=== PATIENT | female | born 1990 | race Caucasian/White ===

== ENCOUNTER → 2018-03-11 10:44 | Outpatient (CLI) | payer OTHER, SELFPAY ==
--- NOTE | 2018-03-11 | DI.US.S_ITS ---
PROCEDURE: US ABDOMEN LIMITED INDICATIONS: ABDOMINAL PAIN, MALS SYNDROME TECHNIQUE: Real-time focused scanning was performed of the abdomen, with image documentation. Doppler examination of the celiac artery in the erect and supine position with full inspiration and expiration. COMPARISON: None. FINDINGS: In the upright position, peak systolic velocity of the celiac axis measures 98 cm/second during inspiration and 178 cm/second in the expiration phase. In the supine position, peak systolic velocities within the celiac artery measure 264 cm/second (inspiration) and 391 cm/second (expiration). IMPRESSION: Increased peak systolic velocities within the celiac artery during expiration in both upright and supine position. Sonographic findings could potentially reflect median arcuate ligament syndrome and associated functional narrowing of the celiac artery. However, this requires close clinical correlation and as needed further evaluation with CTA abdomen could be performed. Dictated by: Binu Pantoja M.D. on 03/11/2018 at 12:12 Approved by: Binu Pantoja M.D. on 03/11/2018 at 12:16
== END ==
PROVIDERS: Visit Provider Family Medicine
DX: R10.9 Unspecified abdominal pain (principal); Q87.89 Other specified congenital malformation syndromes, not elsewhere classified
CPT/HCPCS: 76700; 76705

== ENCOUNTER → 2018-03-29 09:35 | Outpatient (CLI) | payer OTHER, SELFPAY ==
--- NOTE | 2018-03-29 | DI.CT.S_ITS ---
PROCEDURE: CT ANGIO ABDOMEN INDICATIONS: ABDOMINAL PAIN/MALS SYNDROME TECHNIQUE: After the administration of intravenous contrast, 2.5 mm sections acquired from the diaphragm to the iliac crests. 10 mm maximum intensity projection (MIP) coronal and sagittal reformats were then performed. For radiation dose reduction, the following was used: automated exposure control. COMPARISON: None. FINDINGS: Image quality: Excellent. Extravascular tissues: Lung bases are clear. Heart size is normal. Liver is normal in size and enhancement. Gallbladder is unremarkable. Biliary system is non dilated. Pancreas enhances normally. Spleen is normal in size and enhancement. No adrenal nodules. Kidneys are normal in size and enhancement, without hydronephrosis. Non-opacified bowel loops demonstrate normal wall thickness and caliber. No free fluid or air. No retroperitoneal or mesenteric adenopathy. No ventral hernias. No suspicious bony abnormalities. No vertebral body compression fractures. Bilateral breast implants are noted. Abdominal aorta: Abdominal aorta demonstrates no areas of aneurysmal dilation, hemodynamically significant stenosis or vascular occlusion. Mesenteric arteries: The mesenteric arteries demonstrate no areas of aneurysmal dilation, hemodynamically significant stenosis or vascular occlusion. Renal arteries: The renal arteries demonstrate no areas of aneurysmal dilation, hemodynamically significant stenosis or vascular occlusion. IMPRESSION: 1. Abdominal vasculature is unremarkable. No evidence of median arcuate ligament syndrome. Dictated by: Darya Lee M.D. on 03/29/2018 at 11:05 Approved by: Darya Lee M.D. on 03/29/2018 at 13:10
== END ==
PROVIDERS: Visit Provider Family Medicine
DX: R10.9 Unspecified abdominal pain (principal)
CPT/HCPCS: 74175; Q9967

== ENCOUNTER → 2018-08-06 19:16 | Outpatient (CLI) | payer OTHER, SELFPAY ==
[2018-08-06 21:08] LABS: HIV 1 and 2 Antibody NEGATIVE (NEGATIVE); Hep C Virus Ab w/Reflex Quant NEGATIVE s/c (NEGATIVE)
[2018-08-06 21:55] LABS: Urine N gonorrhoeae NOT DETECTED
[2018-08-06 21:57] LABS: Urine Chlamydia NOT DETECTED
[2018-08-09 22:34] LABS: RPR Screen Nonreactive (Nonreactive)
[2018-08-10 14:35] LABS: HSV 1 IgM Screen Negative (Negative); HSV 2 IgM Screen Negative (Negative)
[2018-08-11 15:23] LABS: Hepatitis B Core Antibody Nonreactive (Nonreactive)
== END ==
PROVIDERS: Visit Provider Physician Assistant
DX: Z11.3 Encounter for screening for infections with a predominantly sexual mode of transmission (principal)
CPT/HCPCS: 86592; 86695; 86696; 86703; 86704; 86803; 87491; 87591

== ENCOUNTER → 2018-10-12 18:27 | Outpatient (CLI) | payer OTHER, SELFPAY ==
[2018-10-12 20:54] LABS: Urine N gonorrhoeae NOT DETECTED
[2018-10-12 20:59] LABS: Urine Chlamydia NOT DETECTED
== END ==
PROVIDERS: Visit Provider Physician Assistant
DX: Z11.3 Encounter for screening for infections with a predominantly sexual mode of transmission (principal)
CPT/HCPCS: 87491; 87591

== ENCOUNTER → 2018-10-13 17:31 | Outpatient (CLI) | payer OTHER, SELFPAY ==
[2018-10-13 19:01] LABS: Hepatitis B Surface Antigen NEGATIVE s/c (NEGATIVE)
[2018-10-13 19:18] LABS: Hep C Virus Ab w/Reflex Quant NEGATIVE s/c (NEGATIVE)
[2018-10-13 20:55] LABS: HIV 1 & 2 Ab/Ag 4th Gen Combo NEGATIVE (NEGATIVE)
[2018-11-05 13:31] LABS: RPR Screen Nonreactive
[2018-11-05 13:34] LABS: HSV 1 IgM Screen Negative
[2018-11-05 13:35] LABS: HSV 2 IgM Screen Negative
== END ==
PROVIDERS: Visit Provider Physician Assistant
DX: Z11.3 Encounter for screening for infections with a predominantly sexual mode of transmission (principal)
CPT/HCPCS: 36415; 86592; 86695; 86696; 86803; 87340; 87389

== ENCOUNTER → 2020-11-02 18:51 | Outpatient (CLI) | payer OTHER, SELFPAY ==
[2020-11-02 20:48] LABS: Hep C Virus Ab w/Reflex Quant NEGATIVE s/c (NEGATIVE); Hepatitis B Surface Antigen NEGATIVE s/c (NEGATIVE)
[2020-11-02 20:49] LABS: HIV 1 & 2 Ab/Ag 4th Gen Combo NEGATIVE (NEGATIVE)
[2020-11-02 21:37] LABS: Urine N gonorrhoeae NOT DETECTED
[2020-11-02 21:40] LABS: Urine Chlamydia NOT DETECTED
[2020-11-04 08:13] LABS: RPR Screen Non Reactive (Non Reactive)
[2020-11-04 10:46] LABS: HSV 2 IGG AB < 0.91 index (0.00-0.90)
== END ==
PROVIDERS: Referring Provider Nurse Practitioner; Visit Provider Nurse Practitioner
DX: Z11.3 Encounter for screening for infections with a predominantly sexual mode of transmission (principal)
CPT/HCPCS: 86592; 86695; 86696; 86803; 87340; 87389; 87491; 87591

== ENCOUNTER 2021-02-02 12:58 | Emergency (ER) | payer OTHER, SELFPAY ==
[2021-02-02 13:16] VITALS: BP 121/86; PULSE 101; RESP 16; TEMP 36.9; O2SAT 98; BMI 21.4
[2021-02-02 13:31] LABS: Appearance Urine UA CLOUDY; Bilirubin Urine UA 1+ (NEGATIVE); Color Urine UA ORANGE; Glucose Urine UA NEGATIVE (Negative); Ketones Urine UA NEGATIVE (NEGATIVE); Leukocyte Esterase Urine UA 2+ (NEGATIVE); Nitrite Urine UA POSITIVE (Negative); Occult Blood Urine UA 3+ (Negative); Protein Urine UA 3+ (Negative); Specific Gravity Urine UA 1.025 (1.000-1.035)
[2021-02-02 13:35] LABS: pH Urine UA 6.5 (4.5-8.0)
[2021-02-02 13:38] LABS: Bacteria Urine None Seen; Culture Indicated Urine Specimen Cultured; RBC Urine 10-30/HPF (0-5/HPF); WBC Urine 5-10/HPF (0-5/HPF)
[2021-02-02 13:40] LABS: Ictotest Urine Negative (Negative)
--- NOTE | 2021-02-02 13:53 | DI.CT.S_ITS ---
PROCEDURE: CT ABDOMEN PELVIS W CON INDICATIONS: c/f renal calculi and pyelo, r/o pelvic hemorrhage TECHNIQUE: After the administration of intravenous contrast, axial sections acquired from the lung bases to the pubic symphysis. Coronal and sagittal reformats were performed. For radiation dose reduction, the following was used: automated exposure control, adjustment of mA and/or kV according to patient size. COMPARISON: None. FINDINGS: Image quality: Excellent. Lung bases: Unremarkable. Heart: No significant findings. ABDOMEN: Liver: Unremarkable. Gallbladder: Unremarkable. Biliary ducts: Unremarkable. Pancreas: Unremarkable. Spleen: Unremarkable. Adrenal Glands: Unremarkable. Kidneys and Ureters: Unremarkable. Stomach and Bowel: Stomach, small bowel loops, and colon are unremarkable. Appendix is not definitively seen. No evidence of appendicitis. Peritoneum: There is a small amount of free fluid within the pelvis, within physiological limits in a menstruating female. No free air. Ventral Wall: No hernias. Abdominal Nodes: No retroperitoneal or mesenteric adenopathy by size criteria. Vessels: Aorta and inferior vena cava are normal in size. PELVIS: Pelvic Organs: Unremarkable. Bladder: Urinary bladder is diffusely thickened in decompressed. Pelvic Nodes: No enlarged lymph nodes. Miscellaneous: No hernias are seen. Bones: Unremarkable. IMPRESSION: 1. Findings suggestive of cystitis. Recommend correlation with urinalysis results. 2. Small amount of free fluid within the pelvis, within physiological limits in a menstruating female. Dictated by: Joaquin Lopez M.D. on 02/02/2021 at 15:01 Approved by: Joaquin Lopez M.D. on 02/02/2021 at 15:06
[2021-02-02 14:52] LABS: Add Manual Diff / Slide Review NO; Basophils Absolute Auto 100 /uL (0-100); Basophils Percent Auto 0.3 % (0-2); Eosinophils Absolute Auto 0 /uL (0-450); Eosinophils Percent Auto 0.3 % (2-4); Hematocrit 42.4 % (36-46); Lymphocytes Absolute Auto 3300 /uL (1100-4500); Lymphocytes Percent Auto 21.4 % (25-40); Mean Corpuscular Volume 91.1 fL (80-100); Monocytes Absolute Auto 1500 /uL (0-900); Monocytes Percent Auto 9.3 % (3-14); Neutrophils Absolute Auto 10700 /uL (1500-7000); Neutrophils Percent Auto 68.7 % (50-75); Platelet Count 269 X10^3/uL (150-400); Red Blood Cell Count 4.65 X10^6/uL (4.0-5.2); White Blood Cell Count 15.5 X10^3/uL (4.5-11.0)
--- NOTE | 2021-02-02 14:55 | ED_ITS ---
HPI - Female Genitourinary <ANASTACIA Subramanian - Last Filed: 02/02/21 19:55> General Chief complaint: Urogenital-Female Stated complaint: Excessive blood/clots in urine Time Seen by Provider: 02/02/21 13:23 Source: patient Mode of arrival: Ambulatory History of Present Illness HPI Narrative: 30-year-old female presents emergency department for hematuria and dysuria started this morning. Patient reports that when she was going to bathroom she noticed that she had blood coming from her urine, she reports that she checked her vagina and noted that the blood is not coming from there. Patient denies any recent illness, fever, back pain, abdominal pain, nausea or vomiting, or diarrhea. She reports that she has had urgency, dysuria, and feels like it is irritated down there. She reports her last period was on January 19, 2021, she also reports her last intercourse was 1 month ago. She denies any changes to her vaginal discharge, she reports that his thin, white, not occurred like or foul smelling. She denies any abdominal pain, pelvic pain, she reports that she has a history of constipation and her last BM was on Thursday. Related Data Home Medications Medication Instructions Recorded Confirmed bupropion HCl 150 mg 24 hr tablet, 150 mg PO QAM 08/06/18 10/12/18 extended release dextroamphetamine-amphetamine 30 30 mg PO BID tab 08/06/18 10/12/18 mg tablet (Adderall) drospirenone 3 mg-ethinyl 1 tab PO DAILY 08/06/18 10/12/18 estradiol 0.02 mg tablet (Gianvi (28)) omeprazole 20 mg capsule,delayed 20 mg PO DAILY 08/06/18 10/12/18 release Previous Rx's Medication Instructions Recorded sulfamethoxazole 800 1 tab PO BID #14 tab 02/02/21 mg-trimethoprim 160 mg tablet (Bactrim DS) Allergies Allergy/AdvReac Type Severity Reaction Status Date / Time No Known Drug Allergies Allergy Verified 02/02/21 13:21 Review of Systems <ANASTACIA Subramanian - Last Filed: 02/02/21 19:55> Review of Systems Narrative: General: denies fever, chills Head/Neck: denies headache, neck pain Eyes: denies visual changes, eye pain Cardio: denies chest pain, palpitations Respiratory: denies shortness of breath, cough GI: denies abdominal pain, nausea, vomiting, or diarrhea : Endorses having dysuria, hematuria, and urgency, she denies any pelvic pain MSK: denies joint pain, muscle weakness Skin: denies rash, itching Neuro: denies numbness, tingling Patient History <ANASTACIA Subramanian - Last Filed: 02/02/21 19:55> alcohol intake frequency: 0-2 drinks per day Substance Use Type: does not use Exam <ANASTACIA Subramanian - Last Filed: 02/02/21 19:55> Narrative Exam Narrative: Independently reviewed vitals signs and nursing notes. General: Awake, alert, nontoxic, no cardiorespiratory distress, afebrile, Head/Neck: Atraumatic, neck full range of motion Eyes: EOMI, conjunctiva normal Nose: nares patent, no rhinorrhea Mouth/Throat: moist mucus membranes, posterior pharynx normal, no oral lesions Cardio: Regular rate and rhythm, no peripheral edema, heart rate was 86 when I was assessing the patient Respiratory: respirations unlabored without wheezing, stridor, or rales. No re tractions. GI: Abdomen soft, nontender to palpation, no masses, no CVA tenderness bilaterally MSK: Moves all extremities, neurovascularly intact Skin: Normal capillary refill, no rash Neuro: Normal speech and cognition, normal gait Initial Vital Signs Initial Vital Signs: Vital Signs Temperature 98.5 F 02/02/21 13:16 Pulse Rate 101 H 02/02/21 13:16 Respiratory Rate 16 02/02/21 13:16 Blood Pressure 121/86 02/02/21 13:16 Pulse Oximetry 98 02/02/21 13:16 Course <ANASTACIA Subramanian - Last Filed: 02/02/21 19:55> Orders Ordered: Discontinued Medications Sodium Chloride (Normal Saline 0.9%) 1,000 mls @ 1,000 mls/hr IV BOLUS ONE Stop: 02/02/21 14:23 Last Infusion: 02/02/21 16:43 Dose: 0 mls/hr Documented by: Admin: 02/02/21 15:03 Dose: 1,000 mls/hr Documented by: MICHAEL Ceftriaxone Sodium 1,000 mg/ (Sodium Chloride) 100 mls @ 200 mls/hr IV NOW ONE Stop: 02/02/21 13:56 Last Infusion: 02/02/21 16:44 Dose: 0 mls/hr Documented by: Admin: 02/02/21 15:00 Dose: 200 mls/hr Documented by: MICHAEL Ketorolac Tromethamine (Ketorolac 30 Mg/Ml Vial) 15 mg IV NOW ONE Stop: 02/02/21 14:49 Last Admin: 02/02/21 14:58 Dose: 15 mg Documented by: MICHAEL Phenazopyridine HCl (Phenazopyridine 100 Mg Tablet) 100 mg PO NOW ONE Stop: 02/02/21 15:00 Last Admin: 02/02/21 15:16 Dose: 100 mg Documented by: MICHAEL Trimethoprim/Sulfamethoxazole (Trimeth/Sulfa 160/800 (Ds) Tablet) 1 tab PO NOW ONE Stop: 02/02/21 13:56 Last Admin: 02/02/21 14:59 Dose: 1 tab Documented by: MICHAEL Vital Signs Vital signs: Vital Signs - 8 hr 02/02/21 13:16 02/02/21 16:33 Temperature 98.5 F Pulse Rate 101 H 92 H Respiratory Rate 16 16 Blood Pressure 121/86 113/75 Pulse Oximetry 98 100 MDM - Female Genitourinary <ROMELIA SubramanianP - Last Filed: 02/02/21 19:55> Lab Data Result diagrams: 02/02/21 14:35 02/02/21 14:35 Labs: Lab Results 02/02/21 02/02/21 02/02/21 Range/Units 13:22 14:35 14:35 WBC 15.5 H (4.5-11.0) X10^3/uL RBC 4.65 (4.0-5.2) X10^6/uL Hgb 14.0 (12.0-16.0) g/dL Hct 42.4 (36-46) % MCV 91.1 (80-100) fL MCH 30.0 (26-34) PG MCHC 33.0 (30-36) % RDW 13.0 (11.6-14.8) % Plt Count 269 (150-400) X10^3/uL Neut % (Auto) 68.7 (50-75) % Lymph % (Auto) 21.4 L (25-40) % [place] % (Auto) 9.3 (3-14) % Eos % (Auto) 0.3 L (2-4) % Baso % (Auto) 0.3 (0-2) % Neut # (Auto) 66111 H (0851-8154) /uL Lymph # (Auto) 3300 (0437-2138) /uL [place] # (Auto) 1500 H (0-900) /uL Eos # (Auto) 0 (0-450) /uL Baso # (Auto) 100 (0-100) /uL Sodium 139 (137-145) mmol/L Potassium 4.0 (3.4-5.1) mmol/L Chloride 104 (98-107) mmol/L Carbon Dioxide 26 (22-32) mmol/L BUN 12 (7-17) mg/dL Creatinine 0.86 (0.52-1.04) mg/dL Estimated GFR > 60.0 (>60) mL/min BUN/Creatinine Ratio 14.0 (6-22) Glucose 95 (70-100) mg/dL Lactate (0.7-2.1) mmol/L Calcium 9.9 (8.4-10.2) mg/dL Total Bilirubin 0.7 (0.2-1.3) mg/dL AST 25 (14-36) IU/L ALT 18 (<35) IU/L Alkaline Phosphatase 96 (38-126) U/L Total Protein 8.2 (6.3-8.2) g/dL Albumin 4.9 (3.5-5.0) g/dL Globulin 3.3 (1.7-4.1) g/dL Albumin/Globulin Ratio 1.5 (1.0-2.8) HCG, Quant < 2.4 mIU/mL Urine Color [place] Urine Appearance Cloudy Urine pH 6.5 (4.5-8.0) Ur Specific [place] 1.025 (1.000-1.035) Urine Protein 3+ H (Negative) Urine Glucose (UA) Negative (Negative) g/dL Urine Ketones Negative (NEGATIVE) Urine Occult Blood 3+ H (Negative) Urine Nitrate Positive H (Negative) Urine Bilirubin 1+ H (NEGATIVE) Ur Bilirubin Confirm Negative (Negative) Urine Urobilinogen 1.0 (0.2) E.U./dL Ur Leukocyte Esterase 2+ H (NEGATIVE) Urine RBC 10-30/hpf H (0-5/HPF) Urine WBC 5-10/hpf H (0-5/HPF) Urine Bacteria None seen (None) Ur Culture Indicated? Specimen cultured 02/02/21 Range/Units 14:35 WBC (4.5-11.0) X10^3/uL RBC (4.0-5.2) X10^6/uL Hgb (12.0-16.0) g/dL Hct (36-46) % MCV (80-100) fL MCH (26-34) PG MCHC (30-36) % RDW (11.6-14.8) % Plt Count (150-400) X10^3/uL Neut % (Auto) (50-75) % Lymph % (Auto) (25-40) % [place] % (Auto) (3-14) % Eos % (Auto) (2-4) % Baso % (Auto) (0-2) % Neut # (Auto) (9707-5411) /uL Lymph # (Auto) (3927-4481) /uL [place] # (Auto) (0-900) /uL Eos # (Auto) (0-450) /uL Baso # (Auto) (0-100) /uL Sodium (137-145) mmol/L Potassium (3.4-5.1) mmol/L Chloride (98-107) mmol/L Carbon Dioxide (22-32) mmol/L BUN (7-17) mg/dL Creatinine (0.52-1.04) mg/dL Estimated GFR (>60) mL/min BUN/Creatinine Ratio (6-22) Glucose (70-100) mg/dL Lactate 1.0 (0.7-2.1) mmol/L Calcium (8.4-10.2) mg/dL Total Bilirubin (0.2-1.3) mg/dL AST (14-36) IU/L ALT (<35) IU/L Alkaline Phosphatase (38-126) U/L Total Protein (6.3-8.2) g/dL Albumin (3.5-5.0) g/dL Globulin (1.7-4.1) g/dL Albumin/Globulin Ratio (1.0-2.8) HCG, Quant mIU/mL Urine Color Urine Appearance Urine pH (4.5-8.0) Ur Specific [place] (1.000-1.035) Urine Protein (Negative) Urine Glucose (UA) (Negative) g/dL Urine Ketones (NEGATIVE) Urine Occult Blood (Negative) Urine Nitrate (Negative) Urine Bilirubin (NEGATIVE) Ur Bilirubin Confirm (Negative) Urine Urobilinogen (0.2) E.U./dL Ur Leukocyte Esterase (NEGATIVE) Urine RBC (0-5/HPF) Urine WBC (0-5/HPF) Urine Bacteria (None) Ur Culture Indicated? Point of Care Testing Test Results Negative Urine Dip Bedside Urine Glucose Negative Bedside Urine Bilirubin - Negative Bedside Urine Ketone - Negative Urine Specific [place] 1.025 Bedside Urine Occult Blood +++ Bedside Urine pH 6.0 Bedside Urine Protein ++ 100 Bedside Urine Urobilinogen 0.2 Bedside Urine Nitrite - Negative Bedside Urine Leukocytes ++ [address] scan - abdomen/pelvis: Radiologist's Impression: PROCEDURE:? CT ABDOMEN PELVIS W CON ? INDICATIONS:? c/f renal calculi and pyelo, r/o pelvic hemorrhage ? TECHNIQUE:? After the administration of intravenous contrast, axial sections acquired from the lung bases to the pubic symphysis.? Coronal and sagittal reformats were performed.? For radiation dose reduction, the following was used:? automated exposure control, adjustment of mA and/or kV according to patient size.? ? COMPARISON:? None. ? FINDINGS:? Image quality:? Excellent.? ? Lung bases:? Unremarkable. Heart:? No significant findings. ? ABDOMEN: Liver:? Unremarkable.? ? Gallbladder:? Unremarkable.? ? Biliary ducts:? Unremarkable.? ? Pancreas:? Unremarkable.? ? Spleen:? Unremarkable.? ? Adrenal Glands:? Unremarkable.? ? Kidneys and Ureters:? Unremarkable.? ? ? Stomach and Bowel:? Stomach, small bowel loops, and colon are unremarkable.? Appendix is not definitively seen.? No evidence of appendicitis. Peritoneum:? There is a small amount of free fluid within the pelvis, within physiological limits in a menstruating female.? No free air.? ? Ventral Wall: ? No hernias.? Abdominal Nodes:? No retroperitoneal or mesenteric adenopathy by size criteria.? Vessels:? Aorta and inferior vena cava are normal in size.? ? PELVIS: Pelvic Organs:? Unremarkable.? ? Bladder:? Urinary bladder is diffusely thickened in decompressed. Pelvic Nodes: No enlarged lymph nodes.? Miscellaneous: No hernias are seen. ? ? ? Bones:? Unremarkable.? IMPRESSION:? 1. Findings suggestive of cystitis.? Recommend correlation with urinalysis results. 2. Small amount of free fluid within the pelvis, within physiological limits in a menstruating female.? ? ? Dictated by: Joaquin Lopez M.D. on 02/02/2021 at 15:01 ? ? Approved by: Joaquin Lopez M.D. on 02/02/2021 at 15:06 ? MDM Narrative Medical decision making narrative: 30-year-old female presents emergency department today with hematuria, dysuria and urinary urgency. She was found to have a UTI on her UA, urine was sent for culture, CT abdomen pelvis was obtained with concern for renal calculi, malignancy, pyelonephritis, or reproductive organ hemorrhage. CT abdomen pelvis showed findings suggestive of cystitis which correlates with her urinalysis results, and a small amount of free fluid within the pelvis which is in physiological limits for a menstruating female. Patient's hCG was negative, no concerns for STIs at this time as patient has not had intercourse for 1 month, no changes to her vaginal discharge, without any pelvic pain, abdominal pain, or other symptom. Patient was given ceftriaxone and Bactrim while in the emergency department as well as 1 L of NS for dehydration. Patient reports feeling much better afterwards. Patient was also given Pyridium and Toradol. Patient reports she already has a prescription for Pyridium sided not feel another 1 of those for her. Differential includes pyelonephritis, renal calculi not visualized on CT, malignancy, STI, PID, yeast infection, although these are all less likely. Patient is appropriate and amenable to discharge home. Vital signs are stable on repeat examination is unremarkable. Patient has been informed of results. Patient has been given strict return to ER precautions for any new or worsening symptoms. Patient understands to follow up closely with outpatient providers as instructed. Patient understands plan and agrees to discharge home. All questions and concerns answered at this time. Discharge Plan Departure Patient Disposition: Home Clinical Impression: Urinary tract infection Instructions: DI for Urinary Tract Infection (UTI) Activity Restrictions/Additional Instructions: *You have been diagnosed with a bladder infection. Your CT did not show any signs of kidney stones, or any emergent causes for your bleeding. This is most likely from your bladder wall which is from spasms, inflammation, and infection. Please take the Pyridium for the next couple of days to help with your spasms pain. Finish the antibiotic that I prescribed for use today. Please try stay hydrated, eat food with your antibiotic, Pyridium stains your urine orangish in color. I am glad that you look well today, you should feel better by tomorrow. Thank you for coming in and feel better soon. *What to do: *Please continue to take your regular medications as directed. [x ] New medication prescriptions sent to your pharmacy: [ ] [ ] New medication written as a paper prescription [ ] No new medications given *Please follow up with your primary care provider in 2-3 days, call for an appointment. Let them know you were seen in the Emergency Department and that we ask that you be seen in follow up. We will electronically transmit a record of today's note if your PCP is in our system *If you do not have a primary care provider please contact the [facility] Resource line at [phone]. They will ask some questions about your medical history and help get you set up with a doctor in the community. *Return to Emergency Department if you should have any new, worsening or concerning symptoms, such as [fever greater than 101F, chills, worsening pain, persistent vomiting or other bothersome symptoms] Prescriptions: New sulfamethoxazole-trimethoprim [Bactrim DS] 800-160 mg tablet 1 tab PO BID Qty: 14 0RF No Action dextroamphetamine-amphetamine [Adderall] 30 mg tablet 30 mg PO BID 0RF omeprazole 20 mg capsule,delayed release(DR/EC) 20 mg PO DAILY 0RF bupropion HCl 150 mg tablet extended release 24 hr 150 mg PO QAM 0RF drospirenone-ethinyl estradiol [Gianvi (28)] 3-0.02 mg tablet 1 tab PO DAILY 0RF Referrals: Chen Harrison PA-C [Primary Care Provider] -
[2021-02-02] MEDS: KETOROLAC 30 MG/ML VIAL 15 MG IV (14:58)
[2021-02-02] MEDS: TRIMETH/SULFA 160/800 (DS) TABLET 1 TAB PO (14:59)
[2021-02-02] MEDS: cefTRIAXone 1,000 MG in SODIUM CHLORIDE 0.9% 100 ML 200 ML IV (15:00)
[2021-02-02] MEDS: SODIUM CHLORIDE 0.9% 1,000 ML 1000 ML IV (15:03)
[2021-02-02 15:07] LABS: Alanine Aminotransferase 18 IU/L (<35); Albumin 4.9 g/dL (3.5-5.0); Albumin Globulin Ratio 1.5 (1.0-2.8); Alkaline Phosphatase 96 U/L (38-126); Aspartate Aminotransferase 25 IU/L (14-36); Bilirubin Total 0.7 mg/dL (0.2-1.3); Blood Urea Nitrogen 12 mg/dL (7-17); Calcium 9.9 mg/dL (8.4-10.2); Carbon Dioxide 26 mmol/L (22-32); Chloride 104 mmol/L (98-107); Estimated Glomerular Filt Rate > 60.0 mL/min (>60); Globulin 3.3 g/dL (1.7-4.1); Glucose 95 mg/dL (70-100); HEMOLYSIS < 15 (0-50); Sodium 139 mmol/L (137-145); Total Protein 8.2 g/dL (6.3-8.2)
[2021-02-02] MEDS: PHENAZOPYRIDINE 100 MG TABLET PO (15:16)
[2021-02-02 15:24] LABS: HCG Quantitative /Beta subunit < 2.4 mIU/mL
[2021-02-02 16:33] VITALS: BP 113/75; PULSE 92; RESP 16; O2SAT 100
== END 2021-02-02 16:45 | disposition home or self-care (01) ==
PROVIDERS: Emergency Medicine; Emergency Provider Nurse Practitioner Critical Care Medicine; PCP Physician Assistant Medical
DX: N39.0 Urinary tract infection, site not specified (principal)
CPT/HCPCS: 36415; 74177; 80053; 81001; 81003; 81025; 83605; 84702; 85025; 87040; 87077; 87086; 96365; 96375; 96376; 99284; J0696; J1885; Q9967